=== PATIENT | female | born 1975 | race Caucasian/White ===

== ENCOUNTER 2025-02-26 15:26 | Observation (INO) ==
--- NOTE | 2025-02-26 16:17 | DR.GENAD ---
HPI Time Seen Time Seen by Provider: 02/26/25 16:16 PCP Primary Care Physician: Betzy Barros HPI Comment HPI Comment: Patient with a history of alcoholic liver cirrhosis presents with difficulty urinating and abdominal swelling as well as bilateral lower extremity swelling. She states is difficult to take a deep breath because of abdominal swelling. Denies abdominal pain. Complaint/Symptoms Chief Complaint:: pt states that for the past 3 days she has been having trouble urinating even though she has been taking her diuretics. She is also swollen in the abdomen and bilateral lower extremities. she is noted to have some abdominal distension and tightness and +1 pitting edema to bilateral lower extremities. she also c/o of SOB due to her swelling. COVID-19 Coronavirus risk:travel/contact w/high risk person: No Has patient experienced Coronavirus symptoms: No Source History Provided: Patient Mode of Arrival Mode of Arrival: Ambulatory Timing Onset of Chief Complaint: 02/23/25 PMH PMH Past Medical History: Yes Past Medical History: Cirrhosis and Hypertension Past Surgical History: Yes Surgical History: Hysterectomy Past Surgical History Comment: tubal ligation Family History History of Family Medical Conditions: Yes Family Medical History: Cancer and Hypertension Social History Does patient currently use any type of tobacco product: Yes Type of Tobacco Use: Cigarettes Alcohol Use: None Do you use any recreational Drugs:: No Lives With: Spouse Lives Where: Home Travel Risk Coronavirus risk:travel/contact w/high risk person: No Has patient experienced Coronavirus symptoms: No Infectious screening Have you traveled outside the country in the last 6 months?: No Isolation: Standard ROS Review of Systems Constitutional: No Symptoms Reported; negative Fever Eyes: No Symptoms Reported ENTM: No Symptoms Reported Respiratoy: No Symptoms Reported; negative Short of Breath (Patient states it is only difficult to breathe when she is leaning forward and her abdomen gets in the way.) or Wheezing Cardiovascular: No Symptoms Reported and Edema; negative Chest Pain, Palpitations or Syncope Gastrointestinal/Abdominal: See HPI; negative Abdominal Pain, Constipation, Diarrhea, Nausea or Vomiting Genitourinary: No Symptoms Reported Neurological: No Symptoms Reported Musculoskeletal: No Symptoms Reported Integumentary: No Symptoms Reported Hematologic/Lymphatic: No Symptoms Reported Endocrine: No Symptoms Reported Psychiatric: No Symptoms Reported All Other Systems: Reviewed and Negative PE Vital Signs Vitals: Vital Signs Temperature 98.1 F Pulse Rate 74 Pulse Rate 76 Pulse Rate 80 Pulse Rate 83 Pulse Rate 84 Pulse Rate 83 Pulse Rate 82 Respiratory Rate 22 Blood Pressure 153/70 Blood Pressure 153/70 O2 Sat by Pulse Oximetry 100 O2 Sat by Pulse Oximetry 99 O2 Sat by Pulse Oximetry 99 O2 Sat by Pulse Oximetry 99 O2 Sat by Pulse Oximetry 99 O2 Sat by Pulse Oximetry 98 O2 Sat by Pulse Oximetry 98 General Limitations: No Limitations General Appearance: Alert and In No Apparent Distress Head Head Exam: Normal Inspection Eyes Eye exam: Normal Appearance; negative Scleral Icterus Neck Neck Exam: Normal Inspection Chest Chest Inspection: Normal Inspection Respiratory Respiratory Exam: Normal Lung Sounds Bilat Respiratory Exam: Bilateral: Clear to Auscultation Cardiovascular Cardiovascular Exam: Regular Rate and Normal Rhythm Abdominal Exam Abdominal Exam: Normal Bowel Sounds, Soft, Distention and Ascites; negative Tenderness, Guarding, Rebound, Rigidity or Organomegaly Extremities Extremities Exam: Normal Inspection Back Back Exam: Normal Inspection Neurologic Neurological Exam: Alert and Oriented X3 Psychiatric Psychiatric Exam: Normal Affect and Normal Mood Skin Skin Exam: Warm, Dry, Intact and Normal Color COURSE Treatment Treatment: Discussed of results of workup with patient and family. ROR Labs Reviewed Laboratory Results Reviewed?: Yes 02/26/25 16:28 02/26/25 16:28 Laboratory: WBC 4.1 X10^3/uL (3.6-10.0) 02/26/25 16: RBC 2.89 X10^6/uL (3.5-5.4) L 02/26/25 16:28 Hgb 10.4 g/dL (12.0-16.0) L 02/26/25 16:28 Hct 29.7 % (36.0-47.0) L 02/26/25 16:28 MCV 102.7 fL (80.0-100.0) H 02/26/25 16:28 MCH 36.0 pg (27.0-34.0) H 02/26/25 16:28 MCHC 35.0 g/dL (33.0-35.0) 02/26/25 16:28 RDW 15.7 % (11.6-16.5) 02/26/25 16:28 Plt Count 32 X10^3/uL (150.0-450.0) L 02/26/25 16:28 MPV 10.1 fL (7.4-11.0) 02/26/25 16:28 Neut % (Auto) 69.5 % (42.0-75.0) 02/26/25 16: Lymph % (Auto) 15.5 % (21.0-51.0) L 02/26/25 16: Morrill % (Auto) 13.4 % (0.0-13.0) H 02/26/25 16:28 Eos % (Auto) 1.1 % (0.9-2.9) 02/26/25 16: Baso % (Auto) 0.5 % (0.2-1.0) 02/26/25 16: Neut # (Auto) 2.9 x10^3/uL (2.2-4.8) 02/26/25 16: Lymph # (Auto) 0.6 X10^3/uL (1.3-2.9) L 02/26/25 16:28 Morrill # (Auto) 0.5 x10^3/uL (0.3-0.8) 02/26/25 16: Eos # (Auto) 0.0 x10^3/uL (0.0-0.2) 02/26/25 16: Baso # (Auto) 0.0 X10^3/uL (0.0-0.1) 02/26/25 16: Absolute Nucleated RBC 0.0 /100WBC 02/26/25 16:28 Sodium 134 mmol/L (136-145) L 02/26/25 16:28 Corrected Sodium 135 mmol/L (136-145) L 02/26/25 16:28 Potassium 4.2 mmol/L (3.5-5.1) 02/26/25 16: Chloride 102 mmol/L (98-107) 02/26/25 16: Carbon Dioxide 27.5 mmol/L (21-32) 02/26/25 16:28 BUN 22 mg/dL (7-18) H 02/26/25 16:28 Creatinine 1.16 mg/dL (0.55-1.02) H 02/26/25 16:28 Est GFR (MDRD) Af Amer > 60 (>60) 02/26/25 16:28 Est GFR (MDRD) Non-Af 52 (>60) L 02/26/25 16:28 Glucose 150 mg/dL (65-99) H 02/26/25 16:28 Calcium 7.7 mg/dL (8.5-10.1) L 02/26/25 16:28 Corrected Calcium 9.2 mg/dL (8.5-10.1) 02/26/25 16:28 Total Bilirubin 2.30 mg/dL (0.2-1.0) H 02/26/25 16:28 AST 60 Units/L (15-37) H 02/26/25 16:28 ALT 44 Units/L (12-78) 02/26/25 16:28 Alkaline Phosphatase 179 Units/L (46-116) H 02/26/25 16:28 Total Protein 5.9 g/dL (6.4-8.2) L 02/26/25 16:28 Albumin 2.1 g/dL (3.4-5.0) L 02/26/25 16:28 Globulin 3.8 g/dL (2.5-4.5) 02/26/25 16:28 Albumin/Globulin Ratio 0.6 Ratio (1.1-2.1) L 02/26/25 16:28 Amylase 52 Units/L (25-115) 02/26/25 16:28 Lipase 95 Units/L (16-77) H 02/26/25 16:28 Other Results Comments: Name: KAREN MORRIS [facility]#: [id number] : 1975 Sex: F Location: ER Order Number(s): [id number] Procedure(s):CT ABDOMEN/PELVIS W/O CON Ordering Physician: Grayson Baez Primary Care: Orly Barros Service Date: 02/26/25 Service Time: 1618 CT ABDOMEN AND PELVIS WITHOUT CONTRAST HISTORY: Abdominal pain COMPARISON: None TECHNIQUE: Axial images were obtained of the abdomen and pelvis without IV contrast. Sagittal and coronal reformatted images were provided. All images were reviewed in a variety of windows and levels. RADIATION REDUCTION TECHNIQUE: Automated exposure control, adjustment of the mA or kV according to patient size, or iterative reconstruction techniques were used. FINDINGS: Please note that lack of IV contrast does limit evaluation of the soft tissues and vascular detail. The visualized lower lung zones are clear. The heart size is within normal limits. There is no evidence of a pericardial effusion. Again seen is a cirrhotic liver with an enlarged spleen. The gallbladder appears unremarkable. There is edema and inflammation in the region of the pancreas. This may be associated with acute pancreatitis. There is a anterior abdominal hernia containing omentum with mild inflammation. Extensive edema is seen in the subcutaneous fat overlying the patient's abdomen including the pannus. The adrenal glands and kidneys appear unremarkable. Extensive collateral vascularization is noted within the region of the splenic hilum. Limited visualization of the colon appears grossly unremarkable. The appendix is normal. Loops of small bowel appear grossly unremarkable. The visualized bones demonstrate degenerative changes. There are no concerning lytic or blastic lesions identified. IMPRESSION: 1. Again seen is a cirrhotic liver with an enlarged spleen. 2. There is edema and inflammation in the region of the pancreas. This may be associated with acute pancreatitis. 3. Extensive edema is seen in the subcutaneous fat overlying the patient's abdomen including the pannus. Please correlate with pain and tenderness in this region. THIS IS AN ELECTRONICALLY VERIFIED FINAL REPORT 02/26/2025 5:28 PM - Electronically signed by Syed Hoffman MD Opioid Opioid Risk Tool Age (Kermit box if 16-45): No History of Preadolescent Sexual Abuse: No Total: 0 Total Score Risk Category: Low Risk Copyright: Jp GARRIDO predicting aberrant behaviors Discharge Plan Diagnosis Discharge Problem: Alcoholic cirrhosis of liver, Pancreatitis Discharge Plan Patient Disposition: 09 ADMITTED INPATIENT Condition: Stable Prescriptions: No Action tizanidine 4 mg tablet 4 mg PO QPM spironolactone 25 mg tablet 25 mg PO QDAY methocarbamol 750 mg tablet 750 mg PO TID PRN furosemide 20 mg tablet 20 mg PO QDAY dicyclomine 10 mg capsule 10 mg PO TID PRN valsartan 40 mg tablet 40 mg PO QDAY lactulose 10 gram/15 mL solution 15 ml PO BID eszopiclone 3 mg tablet 3 mg PO QPM PRN olopatadine 0.6 % spray,non-aerosol 1 spray INTRANASAL DAILY Patient Comments: [NO ORIGINAL SIG] potassium chloride 20 mEq tablet,ER particles/crystals 20 meq PO QID amoxicillin-pot clavulanate 875-125 mg tablet 1 tab PO BID Rx Instructions: x 10 days - started on 02/21/25 Health Concerns: Post Hospitalization: new medications and changes needed to prevent readmission or further decline. Pt educated and given instructions on all concerns. Plan of Treatment: Continue with present treatment and follow up plan. Pt is to keep follow up appointment as instructed and take medications as ordered. Orders to Discharge Patient Discharge Orders: Transfer (Routine); Ordered 02/26/25 Ordered By: Grayson Baez Follow ups/Referrals Follow ups/Referrals: ORLY BARROS [Primary Care Provider, Unknown] - 3 days Instructions Stand Alone Forms: Find Help Web Site, Post Hospital Follow Up Care Print Language: WOLOF
[2025-02-26 16:43] LABS: MEAN PLATELET VOLUME 10.1 fL (7.4-11.0); RED CELL DISTRIBUTION WIDTH 15.7 % (11.6-16.5)
[2025-02-26 16:52] LABS: COR CA(FOR HYPOALB) 9.2 mg/dL (8.5-10.1); COR NA(FOR HYPERGLY) 135 mmol/L (136-145); CREATININE 1.16 mg/dL (0.55-1.02); eGFR NON BLACK RACES 52 (>60)
--- NOTE | 2025-02-26 17:31 | CT ---
CT ABDOMEN AND PELVIS WITHOUT CONTRAST HISTORY: Abdominal pain COMPARISON: None TECHNIQUE: Axial images were obtained of the abdomen and pelvis without IV contrast. Sagittal and coronal reformatted images were provided. All images were reviewed in a variety of windows and levels. RADIATION REDUCTION TECHNIQUE: Automated exposure control, adjustment of the mA or kV according to patient size, or iterative reconstruction techniques were used. FINDINGS: Please note that lack of IV contrast does limit evaluation of the soft tissues and vascular detail. The visualized lower lung zones are clear. The heart size is within normal limits. There is no evidence of a pericardial effusion. Again seen is a cirrhotic liver with an enlarged spleen. The gallbladder appears unremarkable. There is edema and inflammation in the region of the pancreas. This may be associated with acute pancreatitis. There is a anterior abdominal hernia containing omentum with mild inflammation. Extensive edema is seen in the subcutaneous fat overlying the patient's abdomen including the pannus. The adrenal glands and kidneys appear unremarkable. Extensive collateral vascularization is noted within the region of the splenic hilum. Limited visualization of the colon appears grossly unremarkable. The appendix is normal. Loops of small bowel appear grossly unremarkable. The visualized bones demonstrate degenerative changes. There are no concerning lytic or blastic lesions identified. IMPRESSION: 1. Again seen is a cirrhotic liver with an enlarged spleen. 2. There is edema and inflammation in the region of the pancreas. This may be associated with acute pancreatitis. 3. Extensive edema is seen in the subcutaneous fat overlying the patient's abdomen including the pannus. Please correlate with pain and tenderness in this region. THIS IS AN ELECTRONICALLY VERIFIED FINAL REPORT 02/26/2025 5:28 PM - Electronically signed by Syed Hoffman MD
[2025-02-26] MEDS: LASIX IVP ONE (18:54)
[2025-02-26] MEDS ORDERED: ZOFRAN INJ 4 MG VIAL IVP PRN (20:15)
[2025-02-26] MEDS ORDERED: ULTRAM PO PRN (20:15)
[2025-02-26] MEDS ORDERED: MORPHINE SULFATE INJ 2 MG INJ IVP PRN (20:15)
[2025-02-26] MEDS ORDERED: CONSULT PHARMACY - POTASSIUM & MAGNESIUM XX SCH (20:15)
[2025-02-26] MEDS ORDERED: NovoLIN R (or HumuLIN R) SUBCUT PRN (20:15)
[2025-02-26] MEDS: NS 1,000 ML IV 1,000 ML IV ONE (22:12)
[2025-02-26] MEDS ORDERED: AMBIEN PO PRN (22:48)
[2025-02-26 23:21] VITALS: BMI 42.9
[2025-02-27 02:58] LABS: BLOOD/HEMOGLOBIN,URINE NEGATIVE (NEGATIVE); LEUKOCYTE ESTERASE ,URINE NEGATIVE (NEGATIVE); NITRITES,URINE NEGATIVE (NEGATIVE)
[2025-02-27 03:01] LABS: APPEARANCE,URINE CLEAR (CLEAR)
[2025-02-27 03:04] LABS: SQUAMOUS EPITHELIAL CELL,UR FEW /HPF (NEGATIVE)
[2025-02-27 04:39] VITALS: PULSE 84
[2025-02-27 05:50] LABS: MEAN PLATELET VOLUME 8.9 fL (7.4-11.0); RED CELL DISTRIBUTION WIDTH 15.4 % (11.6-16.5)
[2025-02-27 06:07] LABS: COR CA(FOR HYPOALB) 9.3 mg/dL (8.5-10.1); CREATININE 0.86 mg/dL (0.55-1.02); eGFR NON BLACK RACES > 60 (>60)
[2025-02-27] MEDS: DIOVAN TAB 80 MG PO SCH (08:42)
[2025-02-27 09:04] VITALS: BP 120/56; RESP 21; TEMP 98.6; O2SAT 94
[2025-02-27 09:53] LABS: TSH (3RD GENERATION) 2.683 uIU/mL (0.358-3.74)
[2025-02-27] MEDS: VISBIOME PROBIOTIC CAP 112.5 B or equivalent PO SCH (10:22)
[2025-02-27] MEDS ORDERED: XIFAXAN PO SCH (21:00)
== END 2025-02-27 12:25 | disposition home or self-care (01) ==
LOC: MED/SURG 15:26 → ER 15:26 → MED/SURG 20:49
PROVIDERS: ADMIT Obstetrics & Gynecology Obstetrics; ATTEND Obstetrics & Gynecology Obstetrics
DX: K85.80 Other acute pancreatitis without necrosis or infection; Z65.8 Other specified problems related to psychosocial circumstances; R39.198 Other difficulties with micturition; R10.84 Generalized abdominal pain; R73.09 Other abnormal glucose; E83.51 Hypocalcemia; R60.0 Localized edema; Z72.0 Tobacco use; K70.30 Alcoholic cirrhosis of liver without ascites; E87.1 Hypo-osmolality and hyponatremia; R74.8 Abnormal levels of other serum enzymes; E80.6 Other disorders of bilirubin metabolism; I10 Essential (primary) hypertension; R06.02 Shortness of breath; R94.4 Abnormal results of kidney function studies